=== PATIENT | female | born 1995 | race Hispanic/Latino ===

== ENCOUNTER 2024-08-26 18:33 | Emergency (ER) | payer SELFPAY ==
--- NOTE | 2024-08-26 21:00 | ER ---
Nurse's Notes [facility] Name: Delia Butcher Age: 29 yrs Sex: Female : 1995 Arrival Date: 08/26/2024 Time: 18:33 Bed IW9 Private MD: Diagnosis: Presentation: 08/26 18:47 Chief complaint: EMS states: headache, high BS, was 231 on scene , gave 4 mg oral iw zofran for nausea and vomiting, not eating much today, [place] beach. Coronavirus screen: At this time, the client does not indicate any symptoms associated with coronavirus-19. Ebola Screen: No symptoms or risks identified at this time. 18:47 Method Of Arrival: EMS: [facility] iw 18:47 Acuity: JOSE 3 iw 18:48 Initial Sepsis Screen: Does the patient meet any 2 criteria? No. Patient's initial iw sepsis screen is negative. Does the patient have a suspected source of infection? No. Patient's initial sepsis screen is negative. Risk Assessment: Do you want to hurt yourself or someone else? Patient reports no desire to harm self or others. Onset of symptoms was August 26, 2024. Historical: - Allergies: 18:47 No Known Allergies; iw - PMHx: 18:47 Diabetes mellitus; iw Assessment: 20:58 Reassessment: NO ANSWER AFTER THIRD ATTEMPT TO ASSESS PT IN TRIAGE. dd2 ED Course: 18:34 Patient arrived in ED. im 18:47 Triage completed. iw 19:00 Teodora More PA-C is PHCP. sb4 19:00 Gorge Wagner MD is Attending Physician. sb4 20:41 John Liriano, BRIAN is Primary Nurse. rg5 20:45 Patient's name was called from ER lobby. No response. jb4 Administered Medications: No medications were administered Outcome: 20:58 Eloped from waiting room, before seeing physician dd2 20:58 unknown 20:59 Patient left the ED. dd2 Signatures: Rosalinda Young RN BRIAN iw Cruz George RN RN jb4 Teodora More PA-C PA-C sb4 Linda Enriquez John Liriano RN RN rg5 CARLTON NAYAK RN RN dd2 Corrections: (The following items were deleted from the chart) 18:48 18:47 Chief complaint: EMS states: headache, high BS, was 231 on scene iw iw
--- NOTE | 2024-08-26 21:00 | EDPHYS ---
Physician Documentation [facility] Name: Delia Butcher Age: 29 yrs Sex: Female : 1995 Arrival Date: 08/26/2024 Time: 18:33 Bed IW9 Private MD: ED Physician Gorge Wagner HPI: 08/26 20:58 This 29 yrs old Female presents to ER via EMS with complaints of High Blood sb4 Sugar. 20:58 [place] the beach [place] day, only ate a sandwich and a diet Coke. States that she sb4 developed a headache and thought that her blood sugar might be running high so she called EMS. EMS noted her blood sugar to be 230. They gave her p.o. Zofran. She does have a history of diabetes, takes metformin daily. Historical: - Allergies: 18:47 No Known Allergies; iw - PMHx: 18:47 Diabetes mellitus; iw ROS: 20:59 Constitutional: Negative for fever, chills, and weight loss, sb4 20:59 Abdomen/GI: Positive for nausea, 20:59 Neuro: Positive for headache, 20:59 All other systems are negative, Exam: 20:59 Constitutional: This is a well developed, well nourished patient who is awake, alert, sb4 and in no acute distress. Head/Face: Normocephalic, atraumatic. Eyes: Extra-ocular motions intact. Periorbital areas with no swelling, redness, or edema. ENT: Mucous membranes moist. Respiratory: No increased work of breathing, no retractions or nasal flaring. Skin: Warm, dry with normal turgor. Normal color with no rashes, no lesions, and no evidence of cellulitis. MDM: 19:02 Medical Screening Exam initiated sb4 20:59 Data reviewed: vital signs, nurses notes, EMS record. ED course: Patient eloped after sb4 triage and my assessment, prior to workup being complete. 08/26 19:00 Order name: IV Start sb4 Administered Medications: No medications were administered Disposition: 21:00 Chart complete. sb4 Disposition Summary: 08/26/24 20:59 Eloped Notes: Disposition: before being seen by provider dd2 Reason: unknown dd2 Addendum: 08/28/2024 19:21 Co-signature as Attending Physician, Gorge Wagner MD I agree with the assessment and c vance plan of care. Signatures: Dispatcher [employer] EDMS Gorge Wagner MD MD cha Williams, Irene, RN RN Teodora Collazo PA-C PAGay [email or web address] CARLTON NAYAK RN RN dd2 Corrections: (The following items were deleted from the chart) 08/26 19:01 19:01 CBC+H.LAB.BRZ ordered. EDMS EDMS 19: 19:01 BASIC METABOLIC PANEL+C.LAB.BRZ ordered. EDMS EDMS 19:01 19:01 TEST, SERUM+SC.LAB.BRZ ordered. EDMS EDMS
== END 2024-08-26 20:59 | disposition left against medical advice (07) ==
LOC: ER 18:33
DX: Z53.21 Procedure and treatment not carried out due to patient leaving prior to being seen by health care provider (principal)
CPT/HCPCS: 99282